=== PATIENT | female | born 1975 | race Caucasian/White ===

== ENCOUNTER 2017-07-12 22:27 | Emergency (ER) | payer OTHER ==
[2017-07-13] MEDS ORDERED: Doxycycline 100 MG Cap PO ONE
--- NOTE | 2017-07-13 00:06 | EDM.PDOC ---
ED HPI GENERAL MEDICAL PROBLEM - General Chief Complaint: Bite:Animal, Insect Stated Complaint: DEER TICK EMBEDDED Time Seen by Provider: 07/12/17 23:47 Source of Information: Reports: Patient, RN Notes Reviewed History Limitations: Reports: No Limitations - History of Present Illness INITIAL COMMENTS - FREE TEXT/NARRATIVE: Drove herself here Chief complaint Tick bite left leg History of present illness 41-year-old female developed some soreness on the medial aspect of her left thigh, finally looking at the area tonight discovered a tick which was fairly large in size and reddish in color. She removed it in place within the specimen jar. In appearance resembles a deer tick although its size is larger The tick was embedded and had to be pulled out by her No other symptoms currently She would like prophylaxis, previously had a 3 day course of antibiotic which is not standard treatment. Left Upper Leg Pain Score (Numeric/FACES): 2 - Related Data Allergies Allergy/AdvReac Type Severity Reaction Status Date / Time No Known Allergies Allergy Verified 07/12/17 22:49 Home Meds: Home Meds *Insulin Via Pump 07/12/17 [History] Past Medical History Endocrine/Metabolic History: Reports: Diabetes, Type I Social & Family History - Tobacco Use Smoking Status *Q: Unknown Ever Smoked ED ROS GENERAL - Review of Systems Review Of Systems: See Below Constitutional: Reports: No Symptoms HEENT: Reports: No Symptoms Respiratory: Reports: No Symptoms Cardiovascular: Reports: No Symptoms GI/Abdominal: Reports: No Symptoms Skin: Reports: Other (Red bite on the medial aspect of the proximal left thigh) Neurological: Reports: No Symptoms ED EXAM, ANIMAL BITE - Physical Exam Exam: See Below Exam Limited By: No Limitations General Appearance: Alert, No Apparent Distress Ears: Normal External Exam Nose: Normal Inspection Throat/Mouth: Normal Inspection Head: Atraumatic, Normocephalic Neck: Normal Inspection, Non-Tender Respiratory/Chest: No Respiratory Distress, No Accessory Muscle Use Cardiovascular: Normal Peripheral Pulses, Regular Rate, Rhythm Extremities: Normal Inspection (Apart from a small red spot on the medial aspect of the left thigh where the tick had bitten her.), Other (No new rashes) Neurological: Alert, Oriented Skin Exam: Normal Color Lymphadenopathy: Bilateral: No Adenopathy Course - Vital Signs Last Recorded V/S: Last Vital Signs Temp 35.9 C 07/12/17 22:48 Pulse 63 07/12/17 22:48 Resp 16 07/12/17 22:48 BP 135/74 07/12/17 22:48 Pulse Ox 100 07/12/17 22:48 - Orders/Labs/Meds Meds: Medications Discontinued Medications Generic Name Dose Route Start Last Admin Trade Name Donna PRN Reason Stop Dose Admin Doxycycline Hyclate 200 mg 07/13/17 00:00 07/13/17 00:11 Vibramycin PO 07/13/17 00:01 200 mg ONETIME ONE Administration - Re-Assessments/Exams Free Text/Narrative Re-Assessment/Exam: 07/13/17 00:03 41 year old female with a red sore area on the medial aspect of the left thigh from a tic that was discovered embedded It was removed, although larg it has the appearance of a deer tick No symptoms of systemic disease Prophylaxis is not recommended but she desires this doxycycline 200 mg by mouth, Departure - Departure Time of Disposition: 00:04 Disposition: Home, Self-Care 01 Condition: Good Clinical Impression: Tick bite of left thigh with local reaction Qualifiers: Encounter type: initial encounter Qualified Code(s): S70.362A - Insect bite ( nonvenomous), left thigh, initial encounter - Discharge Information Instructions: Tick Bite Information, Adult Referrals: PCP,None [Primary Care Provider] - Forms: ED Department Discharge Additional Instructions: Society for infectious disease recommends a single dose of doxycycline as the best preventive. This is only one certain criteria are met This does not eliminate the possibility of Lyme disease or other tickborne illness Get rechecked if you develop increasing redness at the area, rash, fever, joint swelling or other new or persisting or bothersome symptoms
== END 2017-07-13 00:14 | disposition home or self-care (01) ==
LOC: JP.ED 22:27
DX: S70.362A Insect bite (nonvenomous), left thigh, initial encounter (principal); E10.9 Type 1 diabetes mellitus without complications; W57.XXXA Bitten or stung by nonvenomous insect and other nonvenomous arthropods, initial encounter
CPT/HCPCS: 99282; A9270